=== PATIENT | female | born 1965 ===

== ENCOUNTER 2017-12-06 08:20 | Emergency (ER) | payer MEDICARE, OTHER ==
[~2017-12-06] VITALS: Ht 152.4 cm; Wt 62.6 kg
[~2017-12-06 08:20] MED LIST: Benadryl 50 mg50 MG PO; Pepcid20 MG PO
[2017-12-06] MEDS ORDERED: Naproxen375 MG PO (09:56)
== END 2017-12-06 10:10 | disposition home or self-care (01) ==
LOC: ER 08:20
DX: G89.29 Other chronic pain (principal); M25.511 Pain in right shoulder
CPT/HCPCS: 73030; 99283